=== PATIENT | female | born 1990 | race African-American/Black ===

== ENCOUNTER 2023-02-24 22:42 | Emergency (ER) | payer MEDICAID ==
[~2023-02-24] VITALS: Ht 165.1 cm; Wt 85.0 kg
[2023-02-25] MEDS ORDERED: HYDROCODONE/ACETAMINOPHEN 5/325MG TABLET PO ONE (01:30)
[2023-02-25] MEDS ORDERED: CYCL5TAB MT (02:40)
[2023-02-25] MEDS ORDERED: ACET-2708 MT (02:40)
[2023-02-25 03:06] VITALS: BP 138/76
== END 2023-02-25 03:09 | disposition home or self-care (01) ==
LOC: ER 22:56
DX: S20.211A Contusion of right front wall of thorax, initial encounter (principal); I10 Essential (primary) hypertension; V49.49XA Driver injured in collision with other motor vehicles in traffic accident, initial encounter; Y93.89 Activity, other specified; Y92.89 Other specified places as the place of occurrence of the external cause; Y99.8 Other external cause status
CPT/HCPCS: 71111; 99283